=== PATIENT | female | born 1955 | race African-American/Black ===

== ENCOUNTER → 2016-11-20 | Outpatient (CLI) | payer OTHER ==
[~2016-11-20] MED LIST: HYDR12.56 PO
[2016-11-20 07:25] LABS: HEMATOCRIT 43.6 % (35.0-46.0); MEAN CORPUSCULAR HEMOGLOBIN 29.8 PG (27.0-34.0); MEAN CORPUSCULAR HGB CONC 32.8 % (32.0-36.0); PLATELET COUNT 157 TH/MM3 (150-450); RED BLOOD COUNT 4.79 MIL/MM3 (4.00-5.30); REVIEW FLAG FINAL
[2016-11-20 07:45] LABS: ANION GAP 7 MEQ/L (5-15); AST (GOT) 9 U/L (15-37); BICARBONATE 26.4 MEQ/L (21.0-32.0); BLOOD UREA NITROGEN 16 MG/DL (7-18); CHLORIDE 107 MEQ/L (98-107); GLOMERULAR FILTRATION RATE 62 ML/MIN (>89); GLUCOSE,FASTING 98 MG/DL (74-99); POTASSIUM 4.2 MEQ/L (3.5-5.1); SODIUM (NA) 140 MEQ/L (136-145)
[2016-11-20 07:46] LABS: ALT (GPT) 16 U/L (10-53)
[2016-11-20 07:49] LABS: ALKALINE PHOSPHATASE 138 U/L (45-117); HDL CHOLESTEROL 45.3 MG/DL (40.0-60.0); LDL CHOLESTEROL 112 MG/DL (0-99); TOTAL BILIRUBIN ADULT 0.2 MG/DL (0.2-1.0)
[2016-11-20 11:06] LABS: HEMOGLOBIN A1a 1.1 %; HEMOGLOBIN A1b 0.9 %; HEMOGLOBIN LA1C 1.9 %; HEMOGLOBIN P3 3.6 %
== END ==
LOC: CLAB 06:48
DX: Z79.899 Other long term (current) drug therapy (principal)
CPT/HCPCS: 36415; 80053; 80061; 80178; 83036; 85027

== ENCOUNTER → 2017-02-19 | Outpatient (CLI) | payer OTHER ==
[~2017-02-19] VITALS: Ht 170.2 cm; Wt 87.7 kg
[~2017-02-19] MED LIST changes: +CHLORHEXIDINE GLUCONATE 2 % 1 PACK (2 CLOTHS) TOPICAL PRN; +LACTATED RINGER'S 1000 ML IV PRN; +LIDOCAINE HCL 1% PF 5 ML SYRINGE OTHER ONE; +LITH300C2 PO; +METOPROLOL TARTRATE 25 MG TAB PO PRN; +POVIDONE IODINE 5% (ANTISEPSIS KIT) 4 APPLICATIONS EACH NARE PRN; +PROPOFOL 200 MG/20 ML AMP IV ONE; +PROZ20CA11 PO; +SODIUM CHLORID 0.9% 500 ML IV PRN
[2017-02-19 15:35] VITALS: BP 148/84; PULSE 68; RESP 18; TEMP 97.3; O2SAT 94
--- NOTE | 2017-02-20 00:20 | MR ---
cc: BRITTNEY LAMB M.D. DATE OF : 1955 DATE: 02/19/2017 INDICATIONS FOR PROCEDURE: Colorectal cancer screening. Previous average risk. Photographs and biopsy polypectomy was performed. Monitoring was accomplished with pulse oximeter, EKG, blood pressure monitor. PROCEDURE NOTE After informed consent was obtained and the procedure, risks and benefits were explained including the risks of bleeding, sepsis, perforation, risks of anesthesia, the patient was placed in the left lateral position. The video colonoscope was inserted in the rectum, passed the cecum in the usual fashion. Preparation was excellent. The scope was gradually withdrawn. The cecum, ascending colon were unremarkable. The transverse colon one diminutive polyp was found. This was biopsied off and removed. Biopsy polypectomy was complete. The scope was gradually withdrawn. The descending colon, sigmoid, rectosigmoid were also unremarkable. There were one or two small diverticula noted. In the rectum the scope was retroflexed and in the retroflex view, grade 1 to early grade 2 internal hemorrhoids were noted. No active bleeding was seen. The scope was straightened and removed. The patient tolerated the procedure well. No immediate complications noted. IMPRESSION This examination revealed one diminutive polyp in the transverse colon that was removed by biopsy polypectomy, very minimal diverticular disease was noted and internal hemorrhoids were noted. PLAN Recommend follow up the histopathology. If this is adenomatous polyp recommend repeat colonoscopy in 5 years for surveillance. MD DELANO Jacobs/JARAD /3:09 PM /12:18 AM
--- NOTE | 2017-02-20 10:46 | EKG ---
Date Performed: 02/19/2017 Time Performed: 13:29:38 PTAGE: 62 years EKG: Sinus rhythm NONSPECIFIC T-WAVE ABNORMALITY BORDERLINE ECG NO PREVIOUS TRACING DOCTOR: Santiago Martinez Interpretating Date/Time 02/20/2017 10:44:26
== END ==
LOC: HSDC 12:36
PROVIDERS: ATTEND Internal Medicine Gastroenterology
DX: Z12.11 Encounter for screening for malignant neoplasm of colon (principal); D12.3 Benign neoplasm of transverse colon; K64.8 Other hemorrhoids; K57.90 Diverticulosis of intestine, part unspecified, without perforation or abscess without bleeding; Z01.810 Encounter for preprocedural cardiovascular examination
CPT/HCPCS: 00810; 45380; 88305; 93005; J7120